=== PATIENT | female | born 1955 | race Caucasian/White ===

== ENCOUNTER 2018-02-18 10:17 | Inpatient (IN) | payer MEDICAID ==
[~2018-02-18] VITALS: Ht 177.8 cm; Wt 65.3 kg
[2018-02-18] MEDS ORDERED: PANT40TA5 PO (10:45)
[2018-02-18] MEDS ORDERED: LOSA25TA5 PO (10:45)
[2018-02-18] MEDS ORDERED: CARB-139 PO (10:45)
[2018-02-18] MEDS ORDERED: AMLO5TAB2 PO (10:45)
[2018-02-18] MEDS ORDERED: ONDANSETRON 2MG/ML, 2ML ONE (10:58)
[2018-02-18] MEDS ORDERED: FAMOTIDINE 20 MG/2 ML ONE (10:59)
[2018-02-18] MEDS ORDERED: MAALOX/HYOSCYAMINE/LIDOCAINE 45 ML BTL ONE (10:59)
[2018-02-18] MEDS ORDERED: ONDANSETRON 2MG/ML, 2ML IVPush ONE (11:00)
[2018-02-18] MEDS ORDERED: SODIUM CHLORIDE FLUSH 10ML SYR IVF ONE (11:00)
[2018-02-18] MEDS ORDERED: MAALOX/HYOSCYAMINE/LIDOCAINE 45 ML BTL PO ONE (11:00)
[2018-02-18] MEDS ORDERED: FAMOTIDINE 20 MG/2 ML IVP ONE (11:00)
[2018-02-18] MEDS ORDERED: SODIUM CHLORIDE 0.9% 1,000ML IVBOLUS ONE ×3 (11:00→22:30)
[2018-02-18 11:10] LABS: BASOPHILS # (AUTO) 0.01 x10^3/uL (0-0.1); BASOPHILS % (AUTO) 0 % (0-1); EOSINOPHILS # (AUTO) 0.02 x10^3/uL (0-0.4); EOSINOPHILS % (AUTO) 0 % (1-7); LYMPHOCYTES % (AUTO) 7 % (22-44); MD NO; MEAN CORPUSCULAR HEMOGLOBIN 32.5 pg (27.0-34.8); MEAN CORPUSCULAR HGB CONC 34.1 g/dL (32.4-35.8); MEAN CORPUSCULAR VOLUME 95.4 fL (80-100); MEAN PLATELET VOLUME 6.3 fL (7.4-10.4); MONOCYTES # (AUTO) 1.17 x10^3/uL (0.2-0.8); MONOCYTES % (AUTO) 10 % (2-9); NEUTROPHILS % (AUTO) 83 % (42-75); PLATELET COUNT 509 x10^3/uL (130-400); RED BLOOD COUNT 2.64 x10^6/uL (3.82-5.3)
[2018-02-18 11:22] LABS: ALANINE AMINOTRANSFERASE 15 U/L (12-78); ALBUMIN 2.8 g/dL (3.4-5.0); ANION GAP 10 mmol/L (5-15); CALCIUM 9.7 mg/dL (8.5-10.1); CHLORIDE 105 mmol/L (98-107); CREATININE 0.97 mg/dL (0.55-1.02); TROPONIN I < 0.015 ng/mL (0.000-0.045)
[2018-02-18 11:25] LABS: ALKALINE PHOSPHATASE 131 U/L (45-117); BILIRUBIN,TOTAL 0.5 mg/dL (0.2-1.0); TOTAL PROTEIN 7.3 g/dL (6.4-8.2)
[2018-02-18] MEDS ORDERED: MORPHINE SULFATE 4 MG/ML, 1ML ONE (12:49)
[2018-02-18] MEDS ORDERED: morphine SULFATE 10 MG/ML, 1ML IVPush ONE (13:00)
[2018-02-18 14:40] VITALS: BP 128/71
[2018-02-18] MEDS ORDERED: LACTATED RINGERS 1,000 ML IVBOLUS ONE (15:00)
[2018-02-18] MEDS ORDERED: LABETALOL 5MG/ML, 20ML IVPush PRN (15:00)
[2018-02-18] MEDS ORDERED: MAGNESIUM SULFATE PMX 2GM/50ML 50 ML IV ONE ×2 (15:30→21:00)
[2018-02-18 16:18] LABS: MICROSCOPIC AUTO
[2018-02-18 16:28] LABS: CULTURE INDICATED? YES
[2018-02-18] MEDS: LACTATED RINGERS 1,000 ML IV SCH ×2 (16:44→21:40)
[2018-02-18 17:16] LABS: CHOL/HDL RATIO 6.3; LDL/HDL RATIO 4.3 (0.5-3.0)
[2018-02-18] MEDS ORDERED: LORazepam 2 MG/ML, 1ML IVPush PRN (18:00)
[2018-02-18] MEDS: ONDANSETRON 2MG/ML, 2ML IVPush PRN (19:57)
[2018-02-18] MEDS ORDERED: SODIUM CHLORIDE 0.9% 1,000 ML IVBOLUS PRN (20:39)
[2018-02-18] MEDS ORDERED: PIPERACILLIN/TAZO/PMX 3.375GM 50 ML IV SCH (21:00)
[2018-02-18] MEDS ORDERED: ACETAMINOPHEN 650 MG SUPP PR PRN (21:00)
[2018-02-18] MEDS ORDERED: OMNIPAQUE 350 MG/ML, 100ML BOTTLE ONE (21:25)
[2018-02-18 22:28] LABS: MEAN CORPUSCULAR HEMOGLOBIN 32.4 pg (27.0-34.8); MEAN CORPUSCULAR HGB CONC 33.9 g/dL (32.4-35.8); MEAN CORPUSCULAR VOLUME 95.5 fL (80-100); MEAN PLATELET VOLUME 5.9 fL (7.4-10.4); PLATELET COUNT 352 x10^3/uL (130-400); RED CELL DISTRIBUTION WIDTH 18.2 % (9.6-15.2)
[2018-02-18 22:38] LABS: ALBUMIN 2.1 g/dL (3.4-5.0); ANION GAP 9 mmol/L (5-15); CALCIUM 8.5 mg/dL (8.5-10.1); CHLORIDE 110 mmol/L (98-107)
[2018-02-18 22:40] LABS: BASOPHILS # (AUTO) 0.01 x10^3/uL (0-0.1); BASOPHILS % (AUTO) 0 % (0-1); EOSINOPHILS % (AUTO) 0 % (1-7); LYMPHOCYTES # (AUTO) 0.38 x10^3/uL (1-3.4); LYMPHOCYTES % (AUTO) 3 % (22-44); MD SCAN; MONOCYTES # (AUTO) 1.18 x10^3/uL (0.2-0.8); MONOCYTES % (AUTO) 9 % (2-9); NEUTROPHILS # (AUTO) 11.11 x10^3/uL (1.8-6.8); NEUTROPHILS % (AUTO) 88 % (42-75)
[2018-02-18 22:44] LABS: ALANINE AMINOTRANSFERASE 10 U/L (12-78); ALKALINE PHOSPHATASE 97 U/L (45-117); BILIRUBIN,TOTAL 0.7 mg/dL (0.2-1.0); CREATININE 0.75 mg/dL (0.55-1.02); TOTAL PROTEIN 5.5 g/dL (6.4-8.2)
[2018-02-18] MEDS: MEROPENEM 1 GM in SODIUM CHLORIDE 0.9% 100 ML IV SCH (23:05)
[2018-02-18] MEDS: SODIUM CHLORIDE 0.9% 1,000 ML IV SCH (23:44)
[2018-02-19] VITALS (11 sets, daily range): BP systolic 76–113; BP diastolic 50–72
[2018-02-19] MEDS: SODIUM CHLORIDE 0.9% 1,000 ML IV SCH ×4 (02:00→16:20)
[2018-02-19] MEDS ORDERED: NOREPINEPHRINE 4 MG in SODIUM CHLORIDE 0.9% 246 ML IV PRN (02:30)
[2018-02-19 03:02] LABS: BASOPHILS # (AUTO) 0.01 x10^3/uL (0-0.1); BASOPHILS % (AUTO) 0 % (0-1); EOSINOPHILS % (AUTO) 0 % (1-7); LYMPHOCYTES # (AUTO) 0.59 x10^3/uL (1-3.4); LYMPHOCYTES % (AUTO) 4 % (22-44); MD NO; MEAN CORPUSCULAR HEMOGLOBIN 32.3 pg (27.0-34.8); MEAN CORPUSCULAR HGB CONC 33.9 g/dL (32.4-35.8); MEAN CORPUSCULAR VOLUME 95.2 fL (80-100); MEAN PLATELET VOLUME 6.4 fL (7.4-10.4); MONOCYTES # (AUTO) 1.21 x10^3/uL (0.2-0.8); MONOCYTES % (AUTO) 8 % (2-9); NEUTROPHILS # (AUTO) 12.59 x10^3/uL (1.8-6.8); NEUTROPHILS % (AUTO) 87 % (42-75); PLATELET COUNT 317 x10^3/uL (130-400); RED BLOOD COUNT 2.42 x10^6/uL (3.82-5.3); RED CELL DISTRIBUTION WIDTH 17.8 % (9.6-15.2)
[2018-02-19 03:14] LABS: ALANINE AMINOTRANSFERASE 10 U/L (12-78); ALBUMIN 1.8 g/dL (3.4-5.0); ANION GAP 9 mmol/L (5-15); CALCIUM 8.1 mg/dL (8.5-10.1); CHLORIDE 113 mmol/L (98-107)
[2018-02-19 03:16] LABS: ALKALINE PHOSPHATASE 89 U/L (45-117); BILIRUBIN,TOTAL 0.8 mg/dL (0.2-1.0); TOTAL PROTEIN 5.2 g/dL (6.4-8.2)
[2018-02-19] MEDS ORDERED: PANTOPROZOLE 40MG TABLET PO SCH (07:30)
[2018-02-19] MEDS ORDERED: AMLODIPINE 5 MG TABLET PO SCH (09:00)
[2018-02-19] MEDS ORDERED: LOSARTAN 25MG TABLET PO SCH (09:00)
[2018-02-19] MEDS: MEROPENEM 1 GM in SODIUM CHLORIDE 0.9% 100 ML IV SCH ×2 (10:42→22:20)
[2018-02-19] MEDS: morphine SULFATE 10 MG/ML, 1ML IVPush PRN (11:33)
[2018-02-19] MEDS: PANTOPRAZOLE 40 MG IV IVPush SCH (12:00)
[2018-02-19] MEDS: MVI ADULT 10 ML, THIAMINE 200 MG, FOLIC ACID 1 MG in SODIUM CHLORIDE 0.45% 1,000 ML IV SCH (15:13)
[2018-02-20] MEDS: SODIUM CHLORIDE 0.9% 1,000 ML IV SCH ×4 (00:26→23:30)
[2018-02-20 04:13] VITALS: BP 99/62
[2018-02-20 04:40] LABS: ALBUMIN 1.9 g/dL (3.4-5.0); ANION GAP 9 mmol/L (5-15); CALCIUM 8.6 mg/dL (8.5-10.1); CHLORIDE 110 mmol/L (98-107)
[2018-02-20 04:44] LABS: ALANINE AMINOTRANSFERASE 11 U/L (12-78); ALKALINE PHOSPHATASE 96 U/L (45-117); BILIRUBIN,TOTAL 0.8 mg/dL (0.2-1.0); CREATININE 0.66 mg/dL (0.55-1.02); TOTAL PROTEIN 5.5 g/dL (6.4-8.2)
[2018-02-20 04:48] LABS: BASOPHILS # (AUTO) 0.03 x10^3/uL (0-0.1); BASOPHILS % (AUTO) 0 % (0-1); EOSINOPHILS # (AUTO) 0.04 x10^3/uL (0-0.4); EOSINOPHILS % (AUTO) 0 % (1-7); LYMPHOCYTES # (AUTO) 1.02 x10^3/uL (1-3.4); LYMPHOCYTES % (AUTO) 9 % (22-44); MD NO; MEAN CORPUSCULAR HEMOGLOBIN 32.3 pg (27.0-34.8); MEAN CORPUSCULAR VOLUME 95.2 fL (80-100); MEAN PLATELET VOLUME 6.6 fL (7.4-10.4); MONOCYTES # (AUTO) 1.38 x10^3/uL (0.2-0.8); MONOCYTES % (AUTO) 12 % (2-9); NEUTROPHILS # (AUTO) 9.04 x10^3/uL (1.8-6.8); NEUTROPHILS % (AUTO) 79 % (42-75); PLATELET COUNT 335 x10^3/uL (130-400); RED BLOOD COUNT 2.55 x10^6/uL (3.82-5.3); RED CELL DISTRIBUTION WIDTH 18.2 % (9.6-15.2)
[2018-02-20] MEDS ORDERED: POTASSIUM PHOSPHATE 44 MEQ in SODIUM CHLORIDE 0.9% 500 ML IV ONE (08:00)
[2018-02-20] MEDS: PANTOPRAZOLE 40 MG IV IVPush SCH (09:04)
[2018-02-20] MEDS: morphine SULFATE 10 MG/ML, 1ML IVPush PRN (09:22)
[2018-02-20] MEDS: MEROPENEM 1 GM in SODIUM CHLORIDE 0.9% 100 ML IV SCH ×2 (11:23→22:37)
[2018-02-20] MEDS: HEPARIN 5,000 UNITS/ML, 1ML SQ SCH ×2 (11:34→18:39)
[2018-02-20 12:58] VITALS: BP 124/79
[2018-02-20 19:31] VITALS: BP 117/74
[2018-02-20] MEDS: MVI ADULT 10 ML, THIAMINE 200 MG, FOLIC ACID 1 MG in SODIUM CHLORIDE 0.45% 1,000 ML IV SCH (20:54)
[2018-02-21 01:09] VITALS: BP 120/75
[2018-02-21] MEDS: HEPARIN 5,000 UNITS/ML, 1ML SQ SCH ×3 (02:10→17:51)
[2018-02-21 05:15] LABS: BASOPHILS # (AUTO) 0.04 x10^3/uL (0-0.1); BASOPHILS % (AUTO) 0 % (0-1); EOSINOPHILS # (AUTO) 0.06 x10^3/uL (0-0.4); EOSINOPHILS % (AUTO) 1 % (1-7); LYMPHOCYTES # (AUTO) 1.36 x10^3/uL (1-3.4); LYMPHOCYTES % (AUTO) 14 % (22-44); MD NO; MEAN CORPUSCULAR HEMOGLOBIN 32.1 pg (27.0-34.8); MEAN CORPUSCULAR HGB CONC 33.5 g/dL (32.4-35.8); MEAN CORPUSCULAR VOLUME 95.7 fL (80-100); MEAN PLATELET VOLUME 6.7 fL (7.4-10.4); MONOCYTES # (AUTO) 1.24 x10^3/uL (0.2-0.8); MONOCYTES % (AUTO) 13 % (2-9); NEUTROPHILS # (AUTO) 7.07 x10^3/uL (1.8-6.8); NEUTROPHILS % (AUTO) 73 % (42-75); PLATELET COUNT 315 x10^3/uL (130-400); RED BLOOD COUNT 2.45 x10^6/uL (3.82-5.3); RED CELL DISTRIBUTION WIDTH 17.7 % (9.6-15.2)
[2018-02-21 05:20] LABS: ALBUMIN 1.8 g/dL (3.4-5.0); ANION GAP 9 mmol/L (5-15); CALCIUM 8.6 mg/dL (8.5-10.1); CHLORIDE 111 mmol/L (98-107)
[2018-02-21 05:24] LABS: ALANINE AMINOTRANSFERASE 13 U/L (12-78); ALKALINE PHOSPHATASE 94 U/L (45-117); BILIRUBIN,TOTAL 0.6 mg/dL (0.2-1.0); CREATININE 0.52 mg/dL (0.55-1.02); TOTAL PROTEIN 5.3 g/dL (6.4-8.2)
[2018-02-21] MEDS: SODIUM CHLORIDE 0.9% 1,000 ML IV SCH ×3 (05:55→22:42)
[2018-02-21 07:53] VITALS: BP 125/81
[2018-02-21] MEDS ORDERED: MAGNESIUM SULFATE 4 GM in SODIUM CHLORIDE 0.9% 100 ML IV ONE (08:00)
[2018-02-21] MEDS ORDERED: POTASSIUM CHLORIDE 20 MEQ TAB.ER.PRT PO ONE (08:00)
[2018-02-21] MEDS: morphine SULFATE 10 MG/ML, 1ML IVPush PRN (10:18)
[2018-02-21] MEDS: MEROPENEM 1 GM in SODIUM CHLORIDE 0.9% 100 ML IV SCH ×2 (10:18→22:41)
[2018-02-21 11:43] LABS: CLOSTRIDIUM DIFFICILE ANTIGEN NEGATIVE; CLOSTRIDIUM DIFFICILE TOXIN NEGATIVE (Negative)
[2018-02-21 14:51] VITALS: BP 118/76
[2018-02-21] MEDS: ONDANSETRON 2MG/ML, 2ML IVPush PRN (18:43)
[2018-02-21 19:22] VITALS: BP 127/84
[2018-02-21] MEDS: MVI ADULT 10 ML, THIAMINE 200 MG, FOLIC ACID 1 MG in SODIUM CHLORIDE 0.45% 1,000 ML IV SCH (22:41)
[2018-02-22 00:08] VITALS: BP 113/71
[2018-02-22] MEDS: ONDANSETRON 2MG/ML, 2ML IVPush PRN (02:38)
[2018-02-22] MEDS: HEPARIN 5,000 UNITS/ML, 1ML SQ SCH ×3 (02:38→17:25)
[2018-02-22 05:50] LABS: MEAN CORPUSCULAR HEMOGLOBIN 31.7 pg (27.0-34.8); MEAN CORPUSCULAR HGB CONC 33.2 g/dL (32.4-35.8); MEAN CORPUSCULAR VOLUME 95.5 fL (80-100); PLATELET COUNT 301 x10^3/uL (130-400); RED BLOOD COUNT 2.24 x10^6/uL (3.82-5.3); RED CELL DISTRIBUTION WIDTH 18.4 % (9.6-15.2)
[2018-02-22 05:53] LABS: CHLORIDE 113 mmol/L (98-107)
[2018-02-22 06:02] LABS: ALANINE AMINOTRANSFERASE 10 U/L (12-78); ALBUMIN 1.7 g/dL (3.4-5.0); ALKALINE PHOSPHATASE 97 U/L (45-117); ANION GAP 9 mmol/L (5-15); BILIRUBIN,TOTAL 0.4 mg/dL (0.2-1.0); CALCIUM 8.2 mg/dL (8.5-10.1); CREATININE 0.44 mg/dL (0.55-1.02); TOTAL PROTEIN 5.1 g/dL (6.4-8.2)
[2018-02-22 06:12] LABS: <PLATELET ESTIMATE> ADEQUATE; <PLT MORPHOLOGY> NORMAL PLT MORPH; BASOPHILS # (AUTO) 0.04 x10^3/uL (0-0.1); BASOPHILS % (AUTO) 1 % (0-1); EOSINOPHILS # (AUTO) 0.12 x10^3/uL (0-0.4); EOSINOPHILS % (AUTO) 2 % (1-7); LYMPHOCYTES # (AUTO) 1.09 x10^3/uL (1-3.4); LYMPHOCYTES % (AUTO) 14 % (22-44); MD MORPH REVIEW ONLY; MONOCYTES % (AUTO) 12 % (2-9); NEUTROPHILS # (AUTO) 5.69 x10^3/uL (1.8-6.8); NEUTROPHILS % (AUTO) 73 % (42-75)
[2018-02-22 06:13] LABS: ANISOCYTOSIS 1+; POLYCHROMASIA 1+
[2018-02-22] MEDS: SODIUM CHLORIDE 0.9% 1,000 ML IV SCH (06:21)
[2018-02-22 06:48] VITALS: BP 125/78
[2018-02-22 09:38] VITALS: BP 118/69
[2018-02-22] MEDS: MEROPENEM 1 GM in SODIUM CHLORIDE 0.9% 100 ML IV SCH ×2 (10:06→22:46)
[2018-02-22] MEDS: morphine SULFATE 10 MG/ML, 1ML IVPush PRN (10:06)
[2018-02-22 10:27] LABS: ABSOLUTE RETICS # 0.038 x10^6/uL (0.5-2.5); RETICULOCYTE COUNT % 1.69 % (0.5-1.5)
[2018-02-22 10:31] LABS: RED BLOOD COUNT 2.23 x10^6/uL (3.82-5.3)
[2018-02-22 12:42] LABS: OCCULT BLOOD NEGATIVE (NEGATIVE)
[2018-02-22 13:19] VITALS: BP 118/81
[2018-02-22] MEDS: FOLIC ACID 1 MG TABLET PO SCH (13:35)
[2018-02-22] MEDS: THIAMINE 100MG TABLET PO SCH (13:35)
[2018-02-22 19:19] VITALS: BP 138/90
[2018-02-23] MEDS: HEPARIN 5,000 UNITS/ML, 1ML SQ SCH ×3 (01:18→18:09)
[2018-02-23 01:21] VITALS: BP 127/80
[2018-02-23] MEDS ORDERED: SODIUM CHLORIDE 0.9% 1,000 ML IV SCH (03:00)
[2018-02-23 05:06] LABS: ALBUMIN 1.7 g/dL (3.4-5.0); ANION GAP 7 mmol/L (5-15); BASOPHILS # (AUTO) 0.06 x10^3/uL (0-0.1); BASOPHILS % (AUTO) 1 % (0-1); CALCIUM 8.8 mg/dL (8.5-10.1); CHLORIDE 113 mmol/L (98-107); EOSINOPHILS # (AUTO) 0.17 x10^3/uL (0-0.4); EOSINOPHILS % (AUTO) 2 % (1-7); LYMPHOCYTES # (AUTO) 1.23 x10^3/uL (1-3.4); LYMPHOCYTES % (AUTO) 16 % (22-44); MD NO; MEAN CORPUSCULAR HEMOGLOBIN 32.5 pg (27.0-34.8); MEAN CORPUSCULAR HGB CONC 33.8 g/dL (32.4-35.8); MEAN CORPUSCULAR VOLUME 96.1 fL (80-100); MEAN PLATELET VOLUME 6.8 fL (7.4-10.4); MONOCYTES # (AUTO) 1.02 x10^3/uL (0.2-0.8); MONOCYTES % (AUTO) 13 % (2-9); NEUTROPHILS # (AUTO) 5.21 x10^3/uL (1.8-6.8); NEUTROPHILS % (AUTO) 68 % (42-75); PLATELET COUNT 303 x10^3/uL (130-400); RED BLOOD COUNT 2.26 x10^6/uL (3.82-5.3); RED CELL DISTRIBUTION WIDTH 18.2 % (9.6-15.2)
[2018-02-23 05:10] LABS: ALANINE AMINOTRANSFERASE 10 U/L (12-78); ALKALINE PHOSPHATASE 101 U/L (45-117); BILIRUBIN,TOTAL 0.5 mg/dL (0.2-1.0); CREATININE 0.48 mg/dL (0.55-1.02); TOTAL PROTEIN 5.2 g/dL (6.4-8.2)
[2018-02-23 06:52] VITALS: BP 135/86
[2018-02-23] MEDS: MULTIVITAMIN 1 TABLET PO SCH (09:26)
[2018-02-23] MEDS: FOLIC ACID 1 MG TABLET PO SCH (09:26)
[2018-02-23] MEDS: THIAMINE 100MG TABLET PO SCH (09:26)
[2018-02-23] MEDS: MEROPENEM 1 GM in SODIUM CHLORIDE 0.9% 100 ML IV SCH ×2 (10:47→21:48)
[2018-02-23] MEDS: SODIUM CHLORIDE 0.9% 1,000 ML IV SCH (10:47)
[2018-02-23] MEDS: HYDROcodone/APAP 5/325 TABLET PO PRN ×2 (10:49→21:48)
[2018-02-23] MEDS ORDERED: ACETAMINOPHEN 325 MG TABLET PO PRN (11:00)
[2018-02-23] MEDS ORDERED: MAGNESIUM SULFATE PMX 2GM/50ML 50 ML IV ONE (11:30)
[2018-02-23] MEDS: NEUTRA PHOS K 250 MG TABLET PO SCH ×3 (12:31→21:47)
[2018-02-23 13:06] VITALS: BP 125/85
[2018-02-23 19:57] VITALS: BP 154/97
[2018-02-23 21:34] VITALS: BP 145/82
[2018-02-24] MEDS: HEPARIN 5,000 UNITS/ML, 1ML SQ SCH ×3 (02:19→18:15)
[2018-02-24] MEDS: SODIUM CHLORIDE 0.9% 1,000 ML IV SCH (02:19)
[2018-02-24 02:24] VITALS: BP 132/85
[2018-02-24] MEDS ORDERED: SODIUM CHLORIDE 0.9% 1,000 ML IV SCH (03:00)
[2018-02-24 06:37] LABS: MEAN CORPUSCULAR HGB CONC 33.6 g/dL (32.4-35.8); MEAN CORPUSCULAR VOLUME 95.2 fL (80-100); MEAN PLATELET VOLUME 6.9 fL (7.4-10.4); PLATELET COUNT 387 x10^3/uL (130-400); RED BLOOD COUNT 2.38 x10^6/uL (3.82-5.3)
[2018-02-24 06:39] LABS: ALBUMIN 1.8 g/dL (3.4-5.0); ANION GAP 9 mmol/L (5-15); CHLORIDE 114 mmol/L (98-107)
[2018-02-24 06:44] LABS: ALANINE AMINOTRANSFERASE 12 U/L (12-78); ALKALINE PHOSPHATASE 110 U/L (45-117); BILIRUBIN,TOTAL 0.3 mg/dL (0.2-1.0); TOTAL PROTEIN 5.5 g/dL (6.4-8.2)
[2018-02-24 07:03] VITALS: BP 141/90
[2018-02-24 08:01] LABS: BASOPHILS # (AUTO) 0.06 x10^3/uL (0-0.1); BASOPHILS % (AUTO) 1 % (0-1); EOSINOPHILS # (AUTO) 0.25 x10^3/uL (0-0.4); EOSINOPHILS % (AUTO) 3 % (1-7); LYMPHOCYTES % (AUTO) 14 % (22-44); MD SCAN; MONOCYTES # (AUTO) 1.07 x10^3/uL (0.2-0.8); MONOCYTES % (AUTO) 14 % (2-9); NEUTROPHILS % (AUTO) 69 % (42-75)
[2018-02-24] MEDS ORDERED: MAGNESIUM SULFATE PMX 2GM/50ML 50 ML IV ONE (09:00)
[2018-02-24] MEDS: THIAMINE 100MG TABLET PO SCH (10:09)
[2018-02-24] MEDS: MULTIVITAMIN 1 TABLET PO SCH (10:09)
[2018-02-24] MEDS: NEUTRA PHOS K 250 MG TABLET PO SCH (10:09)
[2018-02-24] MEDS: FOLIC ACID 1 MG TABLET PO SCH (10:09)
[2018-02-24] MEDS: MEROPENEM 1 GM in SODIUM CHLORIDE 0.9% 100 ML IV SCH (10:09)
[2018-02-24] MEDS: HYDROcodone/APAP 5/325 TABLET PO PRN (10:14)
[2018-02-24 14:14] VITALS: BP 134/88
[2018-02-24 16:28] VITALS: BP 145/84
[2018-02-24 19:45] VITALS: BP 131/85
[2018-02-25 00:13] VITALS: BP 144/102
[2018-02-25] MEDS: HEPARIN 5,000 UNITS/ML, 1ML SQ SCH ×3 (01:43→18:15)
[2018-02-25 06:04] LABS: BASOPHILS # (AUTO) 0.07 x10^3/uL (0-0.1); BASOPHILS % (AUTO) 1 % (0-1); EOSINOPHILS # (AUTO) 0.21 x10^3/uL (0-0.4); EOSINOPHILS % (AUTO) 2 % (1-7); LYMPHOCYTES # (AUTO) 1.37 x10^3/uL (1-3.4); LYMPHOCYTES % (AUTO) 14 % (22-44); MD NO; MEAN CORPUSCULAR HEMOGLOBIN 32.5 pg (27.0-34.8); MEAN CORPUSCULAR HGB CONC 33.9 g/dL (32.4-35.8); MEAN CORPUSCULAR VOLUME 95.7 fL (80-100); MEAN PLATELET VOLUME 6.2 fL (7.4-10.4); MONOCYTES # (AUTO) 1.18 x10^3/uL (0.2-0.8); MONOCYTES % (AUTO) 12 % (2-9); NEUTROPHILS # (AUTO) 6.94 x10^3/uL (1.8-6.8); NEUTROPHILS % (AUTO) 71 % (42-75); PLATELET COUNT 443 x10^3/uL (130-400); RED BLOOD COUNT 2.41 x10^6/uL (3.82-5.3); RED CELL DISTRIBUTION WIDTH 17.4 % (9.6-15.2)
[2018-02-25 06:11] LABS: ANION GAP 8 mmol/L (5-15); CALCIUM 9.2 mg/dL (8.5-10.1); CHLORIDE 114 mmol/L (98-107)
[2018-02-25] MEDS: HYDROcodone/APAP 5/325 TABLET PO PRN (06:27)
[2018-02-25] MEDS: ONDANSETRON 2MG/ML, 2ML IVPush PRN (06:27)
[2018-02-25 07:10] VITALS: BP 147/88
[2018-02-25] MEDS: THIAMINE 100MG TABLET PO SCH (10:18)
[2018-02-25] MEDS: MULTIVITAMIN 1 TABLET PO SCH (10:18)
[2018-02-25] MEDS: FOLIC ACID 1 MG TABLET PO SCH (10:18)
[2018-02-25 12:11] VITALS: BP 149/82
[2018-02-25] MEDS ORDERED: MAGNESIUM SULFATE 4 GM in SODIUM CHLORIDE 0.9% 100 ML IV ONE (13:30)
[2018-02-25 19:05] VITALS: BP 154/96
[2018-02-26 01:23] VITALS: BP 137/80
[2018-02-26] MEDS: HEPARIN 5,000 UNITS/ML, 1ML SQ SCH ×3 (03:31→18:00)
[2018-02-26 05:59] LABS: ANION GAP 9 mmol/L (5-15); CALCIUM 9.3 mg/dL (8.5-10.1); CHLORIDE 114 mmol/L (98-107); CREATININE 0.35 mg/dL (0.55-1.02)
[2018-02-26 07:52] VITALS: BP 135/93
[2018-02-26] MEDS: FOLIC ACID 1 MG TABLET PO SCH (11:26)
[2018-02-26] MEDS: MULTIVITAMIN 1 TABLET PO SCH (11:26)
[2018-02-26] MEDS: THIAMINE 100MG TABLET PO SCH (11:26)
[2018-02-26 14:29] VITALS: BP 143/84
[2018-02-26 19:48] VITALS: BP 133/89
[2018-02-27] MEDS: HEPARIN 5,000 UNITS/ML, 1ML SQ SCH ×3 (02:54→21:24)
[2018-02-27 04:06] VITALS: BP 131/61
[2018-02-27 08:57] VITALS: BP 145/88
[2018-02-27] MEDS: FOLIC ACID 1 MG TABLET PO SCH (12:01)
[2018-02-27] MEDS: MULTIVITAMIN 1 TABLET PO SCH (12:01)
[2018-02-27] MEDS: THIAMINE 100MG TABLET PO SCH (12:01)
[2018-02-27 14:49] VITALS: BP 153/97
[2018-02-27 19:14] VITALS: BP 155/94
[2018-02-27] MEDS: ONDANSETRON 2MG/ML, 2ML IVPush PRN (21:24)
[2018-02-27] MEDS: HYDROcodone/APAP 5/325 TABLET PO PRN (21:24)
[2018-02-28 01:00] VITALS: BP 143/88
[2018-02-28] MEDS: HEPARIN 5,000 UNITS/ML, 1ML SQ SCH ×3 (05:14→21:49)
[2018-02-28 07:28] VITALS: BP 135/90
[2018-02-28] MEDS: FOLIC ACID 1 MG TABLET PO SCH (08:44)
[2018-02-28] MEDS: THIAMINE 100MG TABLET PO SCH (08:44)
[2018-02-28] MEDS: MULTIVITAMIN 1 TABLET PO SCH (08:45)
[2018-02-28 13:12] VITALS: BP 141/93
[2018-02-28] MEDS: CALCIUM CARBONATE 500 MG TAB.CHEW PO PRN ×2 (18:03→21:49)
[2018-02-28 19:16] VITALS: BP 131/81
[2018-03-01 01:29] VITALS: BP 141/86
[2018-03-01] MEDS: HEPARIN 5,000 UNITS/ML, 1ML SQ SCH ×3 (05:51→21:29)
[2018-03-01 07:16] VITALS: BP 144/93
[2018-03-01] MEDS: MULTIVITAMIN 1 TABLET PO SCH (08:19)
[2018-03-01] MEDS: THIAMINE 100MG TABLET PO SCH (08:19)
[2018-03-01] MEDS: FOLIC ACID 1 MG TABLET PO SCH (08:19)
[2018-03-01 12:33] VITALS: BP 147/96
[2018-03-01 19:08] VITALS: BP 150/84
[2018-03-02 03:22] VITALS: BP 143/97
[2018-03-02] MEDS: HEPARIN 5,000 UNITS/ML, 1ML SQ SCH ×2 (06:13→16:00)
[2018-03-02 07:20] VITALS: BP 147/93
[2018-03-02] MEDS: FOLIC ACID 1 MG TABLET PO SCH (09:57)
[2018-03-02] MEDS: MULTIVITAMIN 1 TABLET PO SCH (09:57)
[2018-03-02] MEDS: THIAMINE 100MG TABLET PO SCH (09:57)
[2018-03-02 12:14] VITALS: BP 136/93
[2018-03-02] MEDS ORDERED: THIA100T67 PO (14:23)
[2018-03-02] MEDS ORDERED: FOLI-17 PO (14:23)
[2018-03-02] MEDS ORDERED: MULT1TAB60 PO (14:23)
[2018-03-02] MEDS ORDERED: AMLO5TAB2 PO (14:23)
[2018-03-02] MEDS ORDERED: HYDR-3240 PO (14:23)
== END 2018-03-02 17:22 | DRG 438 ==
LOC: ED 11:50 → 3NW 12:43 → 4WST 17:35 → CCU 21:19 → 5SO 02-20 12:55 → 3NE 02-24 15:44
PROVIDERS: ADMIT Hospitalist; ATTEND Hospitalist
PROC: 30233N1 Transfusion of Nonautologous Red Blood Cells into Peripheral Vein, Percutaneous Approach (ICD-10-PCS; principal; 2018-02-19)
DX: K85.00 Idiopathic acute pancreatitis without necrosis or infection (principal); E43 Unspecified severe protein-calorie malnutrition; R65.10 Systemic inflammatory response syndrome (SIRS) of non-infectious origin without acute organ dysfunction; E87.1 Hypo-osmolality and hyponatremia; R57.9 Shock, unspecified; K86.3 Pseudocyst of pancreas; N28.1 Cyst of kidney, acquired; K21.9 Gastro-esophageal reflux disease without esophagitis; D72.829 Elevated white blood cell count, unspecified; I10 Essential (primary) hypertension; E87.6 Hypokalemia; E83.42 Hypomagnesemia; E83.39 Other disorders of phosphorus metabolism; F10.10 Alcohol abuse, uncomplicated; N20.0 Calculus of kidney; Y90.9 Presence of alcohol in blood, level not specified; D64.89 Other specified anemias; E86.1 Hypovolemia; K83.8 Other specified diseases of biliary tract; Z98.51 Tubal ligation status; Z88.2 Allergy status to sulfonamides; Z68.20 Body mass index [BMI] 20.0-20.9, adult; Z71.41 Alcohol abuse counseling and surveillance of alcoholic
CPT/HCPCS: 36415; 36600; 74022; 99285; S0028; 71045; 74177; 76700; 80048; 80053; 80061; 81001; 82272; 82728; 82803; 82962; 83540; 83550; 83605; 83690; 83735; 84100; 84484; 85025; 85045; 86850; 86900; 86923; 87040; 87081; 87086; 87324; 93005; 96361; 96374; 96375; J1644; J2185; J2405; J2543; J3411; J3475; Q9967; C9113; J2060; J2270; J7030; J7040; J7050; J7120; P9016

== ENCOUNTER → 2018-04-28 | Outpatient (CLI) | payer MEDICAID ==
[~2018-04-28] MED LIST: AMLO5TAB7 PO; CARB-139 PO; FOLI-17 PO; HYDR-3240 PO; LOSA25TA6 PO; MULT1TAB60 PO; PANT40TA5 PO; THIA100T67 PO
== END | disposition home or self-care (01) ==
LOC: CFH 15:58
PROVIDERS: ATTEND Registered Nurse
DX: G44.85 Primary stabbing headache (principal)
CPT/HCPCS: 70450